=== PATIENT | female | born 2000 | race American Indian/Alaskan Native ===

== ENCOUNTER 2019-03-10 02:53 | Outpatient (CLI) | payer OTHER ==
[2019-03-10 04:56] VITALS: BP 116/78
[2019-03-10] MEDS ORDERED: ACETAMINOPHEN W/CODEINE 300-30 MG TAB PO NR (08:33)
== END 2019-03-10 09:04 | disposition home or self-care (01) ==
LOC: TRG 02:53
PROVIDERS: ATTEND Obstetrics & Gynecology
DX: O47.1 False labor at or after 37 completed weeks of gestation (principal); Z3A.40 40 weeks gestation of pregnancy
CPT/HCPCS: 59025; Q0177

== ENCOUNTER 2019-03-21 02:18 | Emergency (ER) | payer OTHER ==
[2019-03-21 03:18] LABS: Basophils % (Auto) 0.1 % (0.0-1.8); Eosinophils # (Auto) 0.2 K/mm3 (0.0-0.4); Hematocrit 36.2 % (30.3-42.9); Hemoglobin 11.9 gm/dl (10.1-14.3); Lymphocytes # (Auto) 2.1 K/mm3 (1.2-5.4); Lymphocytes % (Auto) 23.8 % (13.4-35.0); Mean Corpuscular HGB Conc 33 % (30-34); Mean Corpuscular Volume 90 fl (79-97); Monocytes # (Auto) 0.7 K/mm3 (0.0-0.8); Monocytes % (Auto) 7.6 % (0.0-7.3); Platelet Count 275 K/mm3 (140-440); Red Blood Count 4.01 M/mm3 (3.65-5.03); Red Cell Distribution Width 18.5 % (13.2-15.2)
[2019-03-21 03:34] LABS: Bacteria,Urine 1+ /HPF (Negative); Bilirubin,Urine NEG (Negative); Blood,Urine LG (Negative); Color,Urine Yellow (Yellow); Protein,Urine <15 mg/dL mg/dL (Negative); Urobilinogen,Urine < 2.0 mg/dL (<2.0)
[2019-03-21 03:38] LABS: Amphetamine Screen,Urine PRESUMPTIVE NEGATIVE; Benzodiazepines Screen,Urine PRESUMPTIVE NEGATIVE; Cannabinoid Screen,Urine PRESUMPTIVE NEGATIVE; Cocaine Screen,Urine PRESUMPTIVE NEGATIVE; Methadone Screen,Urine PRESUMPTIVE NEGATIVE; Opiate Screen,Urine PRESUMPTIVE NEGATIVE
[2019-03-21 03:44] LABS: RBC,Urine > 182.0 /HPF (0.0-6.0)
[2019-03-21 03:44] LABS: BUN/Creatinine Ratio 15; Blood Urea Nitrogen 6 mg/dL (7-17); Hemolysis Index 1
[2019-03-21] MEDS ORDERED: LORazepam 2 MG/ML VIAL IM ONE (07:00)
[2019-03-21] MEDS ORDERED: LORazepam 1 MG TAB PO ONE (07:15)
[2019-03-21] MEDS ORDERED: ZIPRASIDONE MESYLATE 20 MG VIAL IM ONE ×2 (07:15→12:31)
[2019-03-21] MEDS ORDERED: LORazepam 2 MG/ML VIAL ONE (07:18)
[2019-03-21] MEDS ORDERED: WATER FOR INJ Sterile (PF) 10 ML ONE ×2 (07:19→12:39)
--- NOTE | 2019-03-21 09:17 | Emergency Department Report ---
ED Psych HPI - General Chief Complaint: Psych Stated Complaint: MH Time Seen by Provider: 03/21/19 07:14 Source: patient, family Mode of arrival: Wheelchair - History of Present Illness Initial Comments: This is a 18 year old female who is apparently suffering from an exacerbation of her psychiatric condition. Her Abilify was stopped prepartum. It is now 2 days . She is accompanied by her brother who states that she needs something to calm her down and that she is unable to function. The patient is hardly telling me her name. She is sitting on the gurney with her hands covering her temporal forehead bilaterally. She is apparently responding to internal stimuli. The brother states he does not know if she is having hallucinations or paranoid ideation. He states she just won't "calm down". He admits that she has had similar episodes requiring mental health hospitalization. Complaint: other -: hour(s), days(s) Associated Psychiatric Symptoms: other (at least responding to internal stimuli) History of same: Yes Quality: constant Improves With: none Worsens With: none Context: not taking psychiatric (discontinued prepartum), other (schizophrenia) Treatments Prior to Arrival: none If Self Harm: other (noncommunicative) - Related Data Home Medications Medication Instructions Recorded Confirmed Last Taken Pnv,Calcium 72/Iron/Folic Acid 1 each PO DAILY 03/15/19 03/15/19 Unknown [Pnv Plus Multivit Tab] ARIPiprazole [Abilify Mycite] 10 mg PO DAILY 03/21/19 03/21/19 Unknown Previous Rx's Medication Instructions Recorded Last Taken Type Ferrous Sulfate [Ferrous Sulfate 324 mg PO BID #60 tablet. 03/16/19 Unknown Rx 324 MG] Ibuprofen [Motrin] 600 mg PO Q6H PRN #60 tablet 03/16/19 Unknown Rx Nitrofurantoin [place]/M-Cryst 100 mg PO Q12HR #10 capsule 03/21/19 Unknown Rx [Macrobid CAP] Allergies Allergy/AdvReac Type Severity Reaction Status Date / Time No Known Allergies Allergy Verified 03/10/19 06:26 ED Review of Systems ROS: Stated complaint: MH Other details as noted in HPI Comment: Unobtainable due to pts medical conditions ED Past Medical Hx - Past Medical History Previous Medical History?: Yes Hx Hypertension: No Hx Heart Attack/AMI: No Hx Diabetes: No Hx Deep Vein Thrombosis: No Hx Liver Disease: No Hx Renal Disease: No Hx Sickle Cell Disease: No Hx Seizures: No Hx Psychiatric Treatment: Yes (schizo) Hx Asthma: No Hx COPD: No Hx HIV: No - Surgical History Past Surgical History?: No Hx Pacemaker: No Hx Internal Defibrillator: No - Social History Smoking Status: Never Smoker Substance Use Type: None - Medications Home Medications: Home Medications Medication Instructions Recorded Confirmed Last Taken Type Pnv,Calcium 72/Iron/Folic Acid 1 each PO DAILY 03/15/19 03/15/19 Unknown History [Pnv Plus Multivit Tab] Ferrous Sulfate [Ferrous Sulfate 324 mg PO BID #60 tablet.dr 03/16/19 Unknown Rx 324 MG] Ibuprofen [Motrin] 600 mg PO Q6H PRN #60 tablet 03/16/19 Unknown Rx ARIPiprazole [Abilify Mycite] 10 mg PO DAILY 03/21/19 03/21/19 Unknown History Nitrofurantoin [place]/M-Cryst 100 mg PO Q12HR #10 capsule 03/21/19 Unknown Rx [Macrobid CAP] ED Physical Exam - General Limitations: Altered Mental Status (/psychiatric status) General appearance: other (poorly cooperative) - Head Head exam: Present: atraumatic - Eye Eye exam: Present: normal appearance, PERRL, EOMI. Absent: scleral icterus - ENT ENT exam: Present: mucous membranes moist - Neck Neck exam: Present: normal inspection. Absent: tenderness, meningismus - Respiratory Respiratory exam: Present: normal lung sounds bilaterally. Absent: respiratory distress - Cardiovascular Cardiovascular Exam: Present: regular rate, normal rhythm. Absent: systolic murmur, diastolic murmur, rubs, gallop - GI/Abdominal GI/Abdominal exam: Present: soft, normal bowel sounds. Absent: distended, tenderness, guarding, rebound, rigid - Extremities Exam Extremities exam: Present: normal inspection - Back Exam Back exam: Present: normal inspection - Neurological Exam Neurological exam: Present: alert (hypervigilant), altered. Absent: CN II-XII intact, motor sensory deficit - Psychiatric Psychiatric exam: Present: agitated, flat affect - Skin Skin exam: Present: warm, dry, intact, normal color. Absent: rash ED Course Vital Signs 03/21/19 03/21/19 02:24 06:07 Temperature 98.3 F 98.3 F Pulse Rate 127 H 103 H Respiratory 18 16 Rate Blood Pressure 110/90 Blood Pressure 133/91 [Right] O2 Sat by Pulse 96 99 Oximetry - Reevaluation(s) Reevaluation #1: Patient remains clinically stable awake alert and oriented 3. She is admitted to the hospitalist service for further care and evaluation. 03/21/19 10:24 ED Medical Decision Making - Lab Data Result diagrams: 03/21/19 02:42 03/21/19 02:42 Laboratory Results - last 24 hr 03/21/19 03/21/19 03/21/19 02:42 02:42 02:42 WBC RBC Hgb Hct MCV MCH MCHC RDW Plt Count Lymph % (Auto) [place] % (Auto) Eos % (Auto) Baso % (Auto) Lymph # [place] # Eos # Baso # Seg Neutrophils % Seg Neutrophils # Sodium 143 Potassium 3.4 L Chloride 107.4 H Carbon Dioxide 22 Anion Gap 17 BUN 6 L Creatinine 0.4 L Estimated GFR > 60 BUN/Creatinine Ratio 15 Glucose 110 H Calcium 9.0 Urine Color Urine Turbidity Urine pH Ur Specific [place] Urine Protein Urine Glucose (UA) Urine Ketones Urine Blood Urine Nitrite Urine Bilirubin Urine Urobilinogen Ur Leukocyte Esterase Urine WBC (Auto) Urine RBC (Auto) Urine Bacteria (Auto) Salicylates < 0.3 L Urine Opiates Screen Urine Methadone Screen Acetaminophen < 5.0 L Ur Barbiturates Screen Ur Phencyclidine Scrn Ur Amphetamines Screen U Benzodiazepines Scrn Urine Cocaine Screen U Marijuana (THC) Screen Drugs of Abuse Note Plasma/Serum Alcohol 03/21/19 03/21/19 03/21/19 02:42 02:42 Unknown WBC 8.7 RBC 4.01 Hgb 11.9 Hct 36.2 MCV 90 MCH 30 MCHC 33 RDW 18.5 H Plt Count 275 Lymph % (Auto) 23.8 [place] % (Auto) 7.6 H Eos % (Auto) 2.0 Baso % (Auto) 0.1 Lymph # 2.1 [place] # 0.7 Eos # 0.2 Baso # 0.0 Seg Neutrophils % 66.5 Seg Neutrophils # 5.8 Sodium Potassium Chloride Carbon Dioxide Anion Gap BUN Creatinine Estimated GFR BUN/Creatinine Ratio Glucose Calcium Urine Color Yellow Urine Turbidity Clear Urine pH 8.0 H Ur Specific [place] 1.009 Urine Protein <15 mg/dl Urine Glucose (UA) Neg Urine Ketones Neg Urine Blood Lg Urine Nitrite Neg Urine Bilirubin Neg Urine Urobilinogen < 2.0 Ur Leukocyte Esterase Mod Urine WBC (Auto) 28.0 H Urine RBC (Auto) > 182.0 Urine Bacteria (Auto) 1+ Salicylates Urine Opiates Screen Urine Methadone Screen Acetaminophen Ur Barbiturates Screen Ur Phencyclidine Scrn Ur Amphetamines Screen U Benzodiazepines Scrn Urine Cocaine Screen U Marijuana (THC) Screen Drugs of Abuse Note Plasma/Serum Alcohol < 0.01 03/21/19 Unknown WBC RBC Hgb Hct MCV MCH MCHC RDW Plt Count Lymph % (Auto) [place] % (Auto) Eos % (Auto) Baso % (Auto) Lymph # [place] # Eos # Baso # Seg Neutrophils % Seg Neutrophils # Sodium Potassium Chloride Carbon Dioxide Anion Gap BUN Creatinine Estimated GFR BUN/Creatinine Ratio Glucose Calcium Urine Color Urine Turbidity Urine pH Ur Specific [place] Urine Protein Urine Glucose (UA) Urine Ketones Urine Blood Urine Nitrite Urine Bilirubin Urine Urobilinogen Ur Leukocyte Esterase Urine WBC (Auto) Urine RBC (Auto) Urine Bacteria (Auto) Salicylates Urine Opiates Screen Presumptive negative Urine Methadone Screen Presumptive negative Acetaminophen Ur Barbiturates Screen Presumptive negative Ur Phencyclidine Scrn Presumptive negative Ur Amphetamines Screen Presumptive negative U Benzodiazepines Scrn Presumptive negative Urine Cocaine Screen Presumptive negative U Marijuana (THC) Screen Presumptive negative Drugs of Abuse Note Disclamer Plasma/Serum Alcohol Laboratory Results - last 24 hr 03/21/19 03/21/19 03/21/19 02:42 02:42 02:42 WBC RBC Hgb Hct MCV MCH MCHC RDW Plt Count Lymph % (Auto) [place] % (Auto) Eos % (Auto) Baso % (Auto) Lymph # [place] # Eos # Baso # Seg Neutrophils % Seg Neutrophils # Sodium 143 Potassium 3.4 L Chloride 107.4 H Carbon Dioxide 22 Anion Gap 17 BUN 6 L Creatinine 0.4 L Estimated GFR > 60 BUN/Creatinine Ratio 15 Glucose 110 H Calcium 9.0 Urine Color Urine Turbidity Urine pH Ur Specific [place] Urine Protein Urine Glucose (UA) Urine Ketones Urine Blood Urine Nitrite Urine Bilirubin Urine Urobilinogen Ur Leukocyte Esterase Urine WBC (Auto) Urine RBC (Auto) Urine Bacteria (Auto) Salicylates < 0.3 L Urine Opiates Screen Urine Methadone Screen Acetaminophen < 5.0 L Ur Barbiturates Screen Ur Phencyclidine Scrn Ur Amphetamines Screen U Benzodiazepines Scrn Urine Cocaine Screen U Marijuana (THC) Screen Drugs of Abuse Note Plasma/Serum Alcohol 03/21/19 03/21/19 03/21/19 02:42 02:42 Unknown WBC 8.7 RBC 4.01 Hgb 11.9 Hct 36.2 MCV 90 MCH 30 MCHC 33 RDW 18.5 H Plt Count 275 Lymph % (Auto) 23.8 [place] % (Auto) 7.6 H Eos % (Auto) 2.0 Baso % (Auto) 0.1 Lymph # 2.1 [place] # 0.7 Eos # 0.2 Baso # 0.0 Seg Neutrophils % 66.5 Seg Neutrophils # 5.8 Sodium Potassium Chloride Carbon Dioxide Anion Gap BUN Creatinine Estimated GFR BUN/Creatinine Ratio Glucose Calcium Urine Color Yellow Urine Turbidity Clear Urine pH 8.0 H Ur Specific [place] 1.009 Urine Protein <15 mg/dl Urine Glucose (UA) Neg Urine Ketones Neg Urine Blood Lg Urine Nitrite Neg Urine Bilirubin Neg Urine Urobilinogen < 2.0 Ur Leukocyte Esterase Mod Urine WBC (Auto) 28.0 H Urine RBC (Auto) > 182.0 Urine Bacteria (Auto) 1+ Salicylates Urine Opiates Screen Urine Methadone Screen Acetaminophen Ur Barbiturates Screen Ur Phencyclidine Scrn Ur Amphetamines Screen U Benzodiazepines Scrn Urine Cocaine Screen U Marijuana (THC) Screen Drugs of Abuse Note Plasma/Serum Alcohol < 0.01 03/21/19 Unknown WBC RBC Hgb Hct MCV MCH MCHC RDW Plt Count Lymph % (Auto) [place] % (Auto) Eos % (Auto) Baso % (Auto) Lymph # [place] # Eos # Baso # Seg Neutrophils % Seg Neutrophils # Sodium Potassium Chloride Carbon Dioxide Anion Gap BUN Creatinine Estimated GFR BUN/Creatinine Ratio Glucose Calcium Urine Color Urine Turbidity Urine pH Ur Specific [place] Urine Protein Urine Glucose (UA) Urine Ketones Urine Blood Urine Nitrite Urine Bilirubin Urine Urobilinogen Ur Leukocyte Esterase Urine WBC (Auto) Urine RBC (Auto) Urine Bacteria (Auto) Salicylates Urine Opiates Screen Presumptive negative Urine Methadone Screen Presumptive negative Acetaminophen Ur Barbiturates Screen Presumptive negative Ur Phencyclidine Scrn Presumptive negative Ur Amphetamines Screen Presumptive negative U Benzodiazepines Scrn Presumptive negative Urine Cocaine Screen Presumptive negative U Marijuana (THC) Screen Presumptive negative Drugs of Abuse Note Disclamer Plasma/Serum Alcohol - EKG Data -: EKG Interpreted by La Rate: normal (atrial paced rhythm with complete capture and normal repolarization) Critical care attestation.: If time is entered above; I have spent that time in minutes in the direct care of this critically ill patient, excluding procedure time. ED Disposition Clinical Impression: Hypokalemia, Acute psychosis, Medical clearance for psychiatric admission UTI (urinary tract infection) Qualifiers: Urinary tract infection type: site unspecified Hematuria presence: without hematuria Qualified Code(s): N39.0 - Urinary tract infection, site not specified Disposition: DC/TX-65 PSY HOSP/PSY UNIT Is pt being admited?: No Does the pt Need Aspirin: No Condition: Stable Prescriptions: Nitrofurantoin [place]/M-Cryst [Macrobid CAP] 100 mg PO Q12HR #10 capsule Referrals: PRIMARY CARE, [Primary Care Provider] - 3-5 Days Time of Disposition: 10:27
[2019-03-21] MEDS ORDERED: LIDOCAINE-MPF (1%) 10 MG/1 ML VIAL 5 ML INFILTRATI ONE (09:18)
[2019-03-21] MEDS ORDERED: POTASSIUM CHLORIDE ER 20 MEQ TAB PO ONE ×3 (09:18→11:58)
[2019-03-21] MEDS ORDERED: ALUM-MAG HYDROXIDE-SIMETHICONE 200-200-20MG/5ML ORAL LIQD 30 ML PO PRN (10:29)
[2019-03-21] MEDS ORDERED: MAGNESIUM HYDROXIDE (MOM) ORAL LIQD UDC PO PRN (10:29)
[2019-03-21] MEDS ORDERED: ACETAMINOPHEN 325 MG TAB PO PRN (10:29)
[2019-03-21] MEDS ORDERED: LIDOCAINE (1%) 10 MG/1 ML VIAL 20 ML MDV ONE (11:22)
[2019-03-21] MEDS: NITROFURANTOIN MONOHYD/M-CRYST 100 MG CAP PO SCH ×2 (11:37→23:00)
[2019-03-21] MEDS ORDERED: ZIPRASIDONE 20 MG CAP PO ONE (12:34)
--- NOTE | 2019-03-21 13:02 | Consultation ---
History of Present Illness - Reason for Consult Consult date: 03/21/19 Reason for consult: Mental Health Evaluation Requesting physician: LALA GUILLERMO - Chief Complaint Chief complaint: "I had an episode again" - History of Present Psychiatric Illness 18 y.o. AA female who presented to the ER for bizarre behavior. This patient is known to me. Today the patient was somewhat disorganized during the assessment. She only stated that she felt like "pain" was in her body and she became scared. Some of her answers to questions were not logical. The patient appeared to be responding to some machine hoop maker helper of stimuli during the interview. Per collateral information from the patient's brother Kym, he stated that his sister had another "episode." He stated that she was not responding to him throughout the ordeal. He stated that she had not slept for several hours prior to being brought to the ER. This is a similar presentation per the record on 03/17 when she delivered her son. The patient denies SI/HI's and AVH's. She denies recreational drug use and alcohol consumption (etoh). Medications and Allergies Allergies Allergy/AdvReac Type Severity Reaction Status Date / Time No Known Allergies Allergy Verified 03/10/19 06:26 Home Medications Medication Instructions Recorded Confirmed Last Taken Type Pnv,Calcium 72/Iron/Folic Acid 1 each PO DAILY 03/15/19 03/15/19 Unknown History [Pnv Plus Multivit Tab] Ferrous Sulfate [Ferrous Sulfate 324 mg PO BID #60 tablet. 03/16/19 Unknown Rx 324 MG] Ibuprofen [Motrin] 600 mg PO Q6H PRN #60 tablet 03/16/19 Unknown Rx ARIPiprazole [Abilify Mycite] 10 mg PO DAILY 03/21/19 03/21/19 Unknown History Nitrofurantoin [place]/M-Cryst 100 mg PO Q12HR #10 capsule 03/21/19 Unknown Rx [Macrobid CAP] Active Meds: Active Medications Acetaminophen (Tylenol) 650 mg PO Q4HR PRN PRN Reason: Pain MILD(1-3)/Fever >100.5/DORAN Last Admin: 03/21/19 11:37 Dose: 650 mg Documented by: Al Hydrox/Mg Hydrox/Simethicone (Alum-Mag Hydrox-Simeth [phone]/5ml) 30 ml PO Q4HR PRN PRN Reason: Indigestion Buspirone HCl (Buspar) 7.5 mg PO BID [facility] Magnesium Hydroxide (Milk Of Magnesia) 30 ml PO Q12HR PRN PRN Reason: Constipation Melatonin (Melatonin) 5 mg PO QHS [facility] Nitrofurantoin Macrocrystals (Macrobid) 100 mg PO BID [facility] Last Admin: 03/21/19 11:37 Dose: 100 mg Documented by: Olanzapine (Zyprexa) 5 mg PO QHS [facility] Past psychiatric history - Past Medical History Past Medical History: other (Preg x 1) Past Surgical History: No surgical history - past Psychiatric treatment and history psychiatric treatment history: Hx of mood do. Juan Daniel a fam psy hx. - Social History Social history: lives with family Mental Status Exam - Vital signs Last Vital Signs Temp 98.3 F 03/21/19 06:07 Pulse 103 H 03/21/19 06:07 Resp 16 03/21/19 06:07 BP 133/91 03/21/19 06:07 Pulse Ox 99 03/21/19 06:07 - Exam Narrative exam: MSE: Appearance: in hospital attire Behavior: regular eye contact Speech: regular rate and low tone Mood: "I don't know" Affect: congruent to mood Thought Process: somewhat disorganized Thought Content: denies SI/HI's and AVH's, delusional, responding to some type of stimuli Motor Activity: sitting up in the bed Cognition: A/O x 3 Insight: poor Judgment: poor Results Result Diagrams: 03/21/19 02:42 03/21/19 02:42 Abnormal lab results 03/21/19 03/21/19 03/21/19 Range/Units 02:42 02:42 02:42 RDW (13.2-15.2) % [place] % (Auto) (0.0-7.3) % Potassium 3.4 L (3.6-5.0) mmol/L Chloride 107.4 H (98-107) mmol/L BUN 6 L (7-17) mg/dL Creatinine 0.4 L (0.7-1.2) mg/dL Glucose 110 H (65-100) mg/dL Urine pH (5.0-7.0) Urine WBC (Auto) (0.0-6.0) /HPF Salicylates < 0.3 L (2.8-20.0) mg/dL Acetaminophen < 5.0 L (10.0-30.0) ug/mL 03/21/19 03/21/19 Range/Units 02:42 Unknown RDW 18.5 H (13.2-15.2) % [place] % (Auto) 7.6 H (0.0-7.3) % Potassium (3.6-5.0) mmol/L Chloride (98-107) mmol/L BUN (7-17) mg/dL Creatinine (0.7-1.2) mg/dL Glucose (65-100) mg/dL Urine pH 8.0 H (5.0-7.0) Urine WBC (Auto) 28.0 H (0.0-6.0) /HPF Salicylates (2.8-20.0) mg/dL Acetaminophen (10.0-30.0) ug/mL All other labs normal. Assessment and Plan Assessment and plan: Impression: Unspecified Psychosis. Today the patient was somewhat disorganized during the assessment. DDx: Bipolar DO with Psychosis Recommendation/Plan: Continue 1013 and start Zyprexa 5 mg PO HS for mood/psychosis, Buspar 7.5 mg PO BID for anxiety, and Melatonin 5 mg PO HS for sleep. Discussed possible metabolic side effects of Zyprexa with the patient, she verbalized understanding. The patient will not be . Baseline A1c/Lipid Panel ordered fro the AM. Dispo: The patient was referred to inpatient psy services. Staffed with Dr Pearl Sutton.
--- NOTE | 2019-03-21 15:54 | Event Note ---
Interviewing the patient's laboratory studies patient is medically cleared from an emergency standpoint for psychiatric placement. Regarding the patient being 2 days of consult to her [facility] group and they will place a note to determine whether the patient is medically cleared from their standpoint as well.
--- NOTE | 2019-03-21 16:10 | Event Note ---
Date: 03/21/19 On-call physician consulted regarding clearance for psychiatric facility placement given her status. During her hospitalization where she delivered her son, she was observed until day number four, two days longer than a typical patient. Her vital signs were stable and she met discharge criteria on 03/20/19 from an obstetric standpoint with plan for close follow up within 7 days. She is obstetrically cleared for psychiatric facility placement.
[2019-03-21] MEDS: busPIRone 5 MG TAB PO SCH ×2 (17:21→23:00)
[2019-03-21] MEDS ORDERED: MELATONIN 5 MG TAB PO SCH (22:00)
[2019-03-22 01:18] VITALS: BP 139/98
== END 2019-03-22 02:14 ==
LOC: EEVIPCON 02:18 → ED 02:18
DX: N39.0 Urinary tract infection, site not specified (principal); E87.6 Hypokalemia; F20.9 Schizophrenia, unspecified; Z79.899 Other long term (current) drug therapy
CPT/HCPCS: 36415; 80048; 80307; 81001; 85025; 87086; 96372; 99285; J0696; J2060; J3486; 80320; G0480